=== PATIENT | male | born 1965 | race Caucasian/White ===

== ENCOUNTER 2024-06-01 15:25 | Emergency (ER) | payer MEDICAID ==
[~2024-06-01] VITALS: Ht 167.6 cm; Wt 91.0 kg
[2024-06-01 15:40] VITALS: O2SAT 97
[2024-06-01 17:03] LABS: BASOPHILS % 0.6 % (0.0-2.0); CHLORIDE 104 mEq/L (98-107); HEMATOCRIT. 48.3 % (42.0-52.0); HEMOGLOBIN. 16.5 g/dL (14.0-18.0); LYMPHOCYTES % 25.2 % (20.0-50.0); MEAN CORPUSCULAR HEMOGLOBIN 32.6 pg (28.0-32.0); MEAN CORPUSCULAR HGB CONC 34.3 g/dL (31.0-37.0); MEAN PLATELET VOLUME 9.5 fl (7.4-10.4); MONOCYTES % 8.3 % (2.0-8.0); NEUTROPHILS % 64.9 % (40.0-76.0); PLATELET 192 x1000/uL (130-400); RED BLOOD CELL COUNT 5.08 mill/uL (4.7-6.1); RED CELL DISTRIBUTION WIDTH 13.3 % (11.6-14.6); SODIUM 136 mEq/L (136-145); WHITE BLOOD COUNT 8.7 x1000/uL (4.5-11.0)
[2024-06-01 17:04] LABS: CARBON DIOXIDE 23 mEq/L (21-32)
[2024-06-01 17:05] LABS: CALCIUM 9.2 mg/dL (8.7-10.4)
[2024-06-01 17:09] LABS: CREATININE 1.1 mg/dL (0.6-1.3); GLUCOSE 297 mg/dL (70-105)
[2024-06-01 17:10] LABS: UREA NITROGEN BLOOD 15 mg/dL (9-23)
[2024-06-01 17:12] LABS: TROPONIN I HIGH SENSITIVITY < 4 ng/L (3.0-53)
[2024-06-01] MEDS: ASPIRIN 325MG EC TABLET PO ONE (19:45)
[2024-06-01] MEDS ORDERED: NITR0.4T49 SL (20:43)
[2024-06-01] MEDS ORDERED: ASPI-867 MT (20:43)
[2024-06-01 21:25] VITALS: BP 129/75; PULSE 80; RESP 20; TEMP 36.78072; O2SAT 100
== END 2024-06-01 21:25 | disposition home or self-care (01) ==
LOC: ER 15:25
DX: R07.9 Chest pain, unspecified (principal); E11.9 Type 2 diabetes mellitus without complications; I10 Essential (primary) hypertension; E78.00 Pure hypercholesterolemia, unspecified; K21.9 Gastro-esophageal reflux disease without esophagitis
CPT/HCPCS: 36415; 71045; 80048; 84484; 85025; 93005; 99285